=== PATIENT | male | born 2000 | race Caucasian/White ===

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

== ENCOUNTER 2021-06-27 15:33 | Emergency (ER) | payer MEDICAID ==
[~2021-06-27] VITALS: Ht 175.3 cm; Wt 81.0 kg
[~2021-06-27 15:33] MED LIST: INHA1EAC52 PO
[2021-06-27 15:36] VITALS: BP 123/72
[2021-06-27] MEDS ORDERED: LIDOcaine 1% W/epiNEPHrine 1:100,000 20ml vial SQ ONE ×2 (16:45→16:55)
== END 2021-06-27 17:46 | disposition home or self-care (01) ==
LOC: ER 15:34
DX: L02.413 Cutaneous abscess of right upper limb (principal); J45.909 Unspecified asthma, uncomplicated; F12.90 Cannabis use, unspecified, uncomplicated
CPT/HCPCS: 10060; 99282

== ENCOUNTER 2022-02-23 17:57 | Emergency (ER) | payer SELFPAY ==
[2022-02-24] MEDS ORDERED: PRED20TA PO (00:25)
[2022-02-24] MEDS ORDERED: ALBU8HFA PO (00:25)
== END 2022-02-23 21:14 | disposition left against medical advice (07) ==
LOC: ER 17:58
DX: J45.909 Unspecified asthma, uncomplicated (principal); Z53.21 Procedure and treatment not carried out due to patient leaving prior to being seen by health care provider

== ENCOUNTER 2022-02-23 21:30 | Emergency (ER) | payer MEDICAID, OTHER ==
[~2022-02-23] VITALS: Ht 175.3 cm; Wt 79.5 kg
[2022-02-23 21:45] VITALS: BP 130/91
[2022-02-23] MEDS ORDERED: ipratropium 0.5 MG/2.5ML nebule IH ONE (23:10)
[2022-02-23] MEDS ORDERED: predniSONE 20 mg tablet PO ONE (23:10)
[2022-02-23] MEDS ORDERED: albuterol 2.5 MG/3 ML nebule CONTNEB PRN (23:10)
[2022-02-24] MEDS ORDERED: ALBU8HFA PO (00:25)
[2022-02-24] MEDS ORDERED: PRED20TA PO (00:25)
== END 2022-02-24 00:45 | disposition home or self-care (01) ==
LOC: ER 21:32
DX: J45.901 Unspecified asthma with (acute) exacerbation (principal)
CPT/HCPCS: 94640; 99285; J7512; 94760; A7015

== ENCOUNTER 2023-07-29 08:42 | Emergency (ER) | payer MEDICAID ==
[~2023-07-29] VITALS: Ht 177.8 cm; Wt 90.0 kg
[2023-07-29] MEDS: ipratropium/albuterol 3ml nebule NEB ONE (09:41)
[2023-07-29 09:44] VITALS: PULSE 71; RESP 16; O2SAT 97
[2023-07-29 09:50] VITALS: PULSE 69; RESP 16; O2SAT 99
[2023-07-29] MEDS: predniSONE 20 mg tablet PO ONE (09:51)
[2023-07-29 10:22] VITALS: BP 134/83; PULSE 85; RESP 16; TEMP 98.1; O2SAT 96
[2023-07-29] MEDS ORDERED: ALBU8HFA INH (10:22)
[2023-07-29] MEDS ORDERED: PRED50TA PO (10:22)
== END 2023-07-29 10:26 | disposition home or self-care (01) ==
LOC: ER 08:42
DX: J45.901 Unspecified asthma with (acute) exacerbation (principal); F12.90 Cannabis use, unspecified, uncomplicated
CPT/HCPCS: 94640; 99283; J7512; 94760

== ENCOUNTER 2023-11-03 01:37 | Emergency (ER) | payer MEDICAID, OTHER ==
[~2023-11-03] VITALS: Ht 175.3 cm; Wt 89.9 kg
[~2023-11-03 01:37] MED LIST changes: +PRED50TA PO
[2023-11-03] MEDS: ipratropium/albuterol 3ml nebule NEB ONE (01:55)
[2023-11-03 01:58] VITALS: PULSE 95; RESP 18; O2SAT 93
[2023-11-03 02:02] VITALS: PULSE 93; RESP 18; O2SAT 99
[2023-11-03] MEDS: methylPREDNISolone sod succ 125mg/2ml vial IV ONE (02:10)
[2023-11-03] MEDS: albuterol 2.5 MG/3 ML nebule CONTNEB PRN (02:40)
[2023-11-03 02:43] VITALS: PULSE 82; RESP 18; O2SAT 94
[2023-11-03] MEDS ORDERED: ALBU18HF2 INH (02:59)
[2023-11-03] MEDS ORDERED: PRED20TA PO (02:59)
[2023-11-03 03:40] VITALS: BP 121/77; PULSE 88; RESP 16; TEMP 98; O2SAT 99
== END 2023-11-03 03:46 | disposition home or self-care (01) ==
LOC: ER 01:38
DX: J45.901 Unspecified asthma with (acute) exacerbation (principal); F12.90 Cannabis use, unspecified, uncomplicated; Z79.52 Long term (current) use of systemic steroids
CPT/HCPCS: 94640; 96374; 99284; J2919; 99285; A7015